=== PATIENT | male | born 1975 | race Asian ===

== ENCOUNTER 2019-01-02 12:44 | Outpatient (CLI) | payer BC | END 2019-01-02 21:02 | disposition home or self-care (01) | LOC: US 12:44 | DX: E04.9 Nontoxic goiter, unspecified (principal) ==

== ENCOUNTER 2019-05-19 08:38 | Outpatient (CLI) | payer BC ==
[~2019-05-19] VITALS: Ht 190.5 cm; Wt 127.5 kg
== END 2019-05-19 16:00 | disposition home or self-care (01) ==
LOC: NM 08:38
DX: I10 Essential (primary) hypertension (principal)
CPT/HCPCS: A9500; J2785